=== PATIENT | female | born 1940 ===

== ENCOUNTER 2020-07-16 22:28 | Inpatient (IN) | payer MEDICARE, MEDICAID ==
[2020-07-17 00:30] VITALS: BMI 15.7
[2020-07-17] MEDS ORDERED: Acetaminophen 325 MG TAB PO PRN (01:30)
[2020-07-17] MEDS ORDERED: hydrALAZINE 20 MG/ML VIAL SLOW IVP PRN (01:46)
--- NOTE | 2020-07-17 02:29 | HP ---
REASON FOR ADMISSION: Change in mental status. HISTORY OF PRESENT ILLNESS: This is an 80-year-old female patient, who resides in a group home and has dementia. Recently, her primary care physician has been increasing her amantadine and it was increased from twice a day to three times a day. At the group home around 2:00 p.m., she was noted to be lethargic and confused, which is a change from her usual mental state. She took a nap and then woke up more confused and at some point, she was shaking and having jerking-like movements. She was transferred to an outside emergency room and I did speak with the ER physician, who told me that patient was somnolent as if she was postictal for some period of time, then she became more awake. Her blood work did reveal an increased lactate. She did receive IV fluids. A repeat lactate level showed normalization. A CT of the chest did show questionable pneumonia. Of note, patient had tested positive for COVID-19 on two occasions. The last test was done in May. Patient at that time was febrile and symptomatic and she was isolated whereas the first time, although she tested positive, she was asymptomatic. I did speak with her daughter and she told me that most likely her first test was thought to be a false positive. There was no report of recent shortness of breath, cough, fevers, or chills. Patient is currently on the stroke unit. She appears to be very comfortable, in no acute distress. She follows command and denies shortness of breath. Denies cough. PAST MEDICAL HISTORY: 1. Dementia. 2. Depression. 3. Neuroleptic-induced parkinsonism. 4. Cataract extraction from her right eye. 5. History of falls. 6. Constipation. 7. Anxiety. 8. COVID-19. 9. High blood pressure. SOCIAL HISTORY: She does not smoke. Does not drink alcohol. FAMILY HISTORY: Negative for premature coronary artery disease. REVIEW OF SYSTEMS: Unable to obtain as she is confused. PHYSICAL EXAMINATION: GENERAL: Awake, alert, but confused. VITAL SIGNS: Her blood pressure is 137/80, heart rate of 73, temperature 97.7, and saturating above 95% on room air. HEENT: Head is nontraumatic, normocephalic. Pupils equal and reactive. Extraocular movements are intact. Nonicteric sclerae. Well-injected conjunctivae. Oral mucosa normal. Nasal mucosa normal. NECK: Supple. No adenopathy. No murmur. Thyroid is not palpable. Trachea is midline. No supraclavicular adenopathy. HEART: S1, S2, regular. No murmurs. No gallops. No friction rubs. No displacement of PMI. LUNGS: Clear to auscultation bilaterally. No wheezes, rhonchi, or crackles. Poor inspiratory effort. ABDOMEN: Bowel sounds are positive. Nontender abdomen. No hepatosplenomegaly. EXTREMITIES: No lower extremity edema. No cyanosis. NEUROLOGIC: Cannot perform full neurological examination, but she is moving all four extremities. LABORATORY: Blood work shows lactic acid that initially was 3.6, repeat is 1.5. COVID-19 nondetected. Procalcitonin 0.02. TSH 4.37. INR 1. VBG shows a pH of 7.26, pCO2 of 60, and bicarb 27. Troponin 0.04. Lipase 33. Magnesium 2.1, BUN 16, creatinine 0.76, sodium 140, and potassium 3.6. Urinalysis shows few bacteria, 1 to 2 wbc's, negative leukocyte esterase, negative nitrites. Her CBC shows WBC of 11.9, hemoglobin of 14.2, and platelets of 295. CT of the chest shows lower lung interstitial and ground-glass opacities concerning for infection, including bronchiolitis or inflammatory process. 1.2 cm right upper lobe ground-glass opacity. Recommend followup CT in [address] head shows chronic ischemic changes without evidence of acute intracranial abnormality. ASSESSMENT AND PLAN: This is an 80-year-old female patient presenting with change in mental status, possible seizures in the setting of increasing her amantadine dose from b.i.d. to t.i.d. She had COVID-[address] scan does show possible pneumonia. Neuro. Patient possibly had a seizure. We will have her on seizure precaution. We will do an EEG. We will stop amantadine and other psychiatric medications and we will do frequent neuro checks. Patient will be kept n.p.o. on IV fluids. Cardiac. Patient has high blood pressure. We will have her on IV hydralazine on an as-needed basis. Pulmonary. Patient possibly has a pneumonia. We will cover with IV antibiotics. DVT prophylaxis. She will be on SCDs and Lovenox subcutaneously. I did discuss the code status with her daughter, who is the medical power of energy attorney and she wishes her to be a full code. Job ID: [id number]
[2020-07-17] MEDS: Dextrose 5 %-0.45 % NaCl 1,000 ML IV SCH ×2 (02:52→16:29)
[2020-07-17] MEDS ORDERED: Cefepime 2 GM in Sodium Chloride 0.9% 100 ML IVPB SCH (03:00)
[2020-07-17 06:38] LABS: Anion Gap 12 mmol/L (10-20); BUN (Urea Nitrogen) 10 mg/dL (9.8-20.1); Calc. Creatinine Clearance 43 mL/min (70-130); Calcium 8.3 mg/dL (7.8-10.44); Carbon Dioxide 22 mmol/L (23-31); Chloride 109 mmol/L (98-107); Estimated GFR-MDRD Greater than 90; Glucose 87 mg/dL (83-110); Potassium 4.2 mmol/L (3.5-5.1); Sodium 139 mmol/L (136-145)
[2020-07-17] MEDS: Megestrol Acetate 800 MG/20 ML UDCUP PO SCH (09:28)
[2020-07-17] MEDS: Cefepime 2 GM in Sodium Chloride 0.9% 100 ML IVPB SCH ×2 (09:29→16:29)
[2020-07-17] MEDS: Enoxaparin Sodium 40 MG/0.4 ML SYRINGE SC SCH (09:30)
[2020-07-17] MEDS: Multivitamin W/ Minerals 1 TAB PO SCH (09:30)
[2020-07-17 10:57] LABS: %Monocytes 4.4 % (0.0-10.0); %Neutrophils 81.7 % (42.0-75.0); Hemoglobin 13.5 g/dL (12.0-16.0); Mean Corpuscular HGB CONC 32.3 g/dL (32.0-36.0); Mean Corpuscular Hemoglobin 30.4 pg (27.0-31.0); Platelet Count 204 thou/uL (130-400); RBC Distribution Width 13.9 % (11.5-14.5); Red Blood Cell (RBC) Count 4.46 mill/uL (4.20-5.40); White Blood Cell (WBC) Count 10.1 thou/uL (4.8-10.8)
[2020-07-17 10:58] LABS: #Basophils 0.1 thou/uL (0.0-0.2); #Eosinphils 0.1 thou/uL (0.0-0.7); #Lymphocytes 1.2 thou/uL (1.20-3.40); #Monocytes 0.4 thou/uL (0.11-0.59); #Neutrophils 8.3 thou/uL (1.40-6.50); %Basophils 0.5 % (0.0-1.0); %Eosinophils 1.4 % (0.0-10.0)
[2020-07-17] MEDS ORDERED: levETIRAcetam 500 mg/5 ml Oral Solution PO SCH (12:15)
--- NOTE | 2020-07-17 12:36 | CON ---
DATE OF CONSULTATION: 07/17/2020 REASON FOR CONSULTATION: Altered mental status, rule out seizures. HISTORY OF PRESENT ILLNESS: Ms. Douglas is an 80-year-old female, who is a snf resident and her history is significant for dementia, depression, neuroleptic-induced parkinsonism, presented with altered mental status. Recently, her primary care physician has increased her amantadine from twice a day to three times a day. In the snf around 2 p.m., she was found to be extremely lethargic and confused, which is different from her baseline. She took a nap and then woke up and was more confused, and at some point, she has shaking and jerking movements. When she arrived to the emergency room, she was extremely somnolent. Head CT was done, which was negative for acute intracranial pathology. CT of the chest did show questionable pneumonia. The patient was admitted for further evaluation. REVIEW OF SYSTEMS: Unobtainable due to the patient's mental status. PAST MEDICAL HISTORY: Depression, dementia, neuroleptic-induced parkinsonism, cataract extraction from the right eye, history of multiple falls, anxiety, COVID-19 pneumonia, and hypertension. SOCIAL HISTORY: The patient lives at the snf. No documented history of smoking, alcohol, or illegal drug use. FAMILY HISTORY: Negative for premature coronary artery disease or epilepsy. PAST SURGICAL HISTORY: Not significant. ALLERGIES: NKDA PHYSICAL EXAMINATION: VITAL SIGNS: Blood pressure 130/80, pulse 80, respiratory rate 18. GENERAL: Awake and alert female, in no acute distress. CVS: Regular rate and rhythm. CHEST: Clear. ABDOMEN: Soft. NECK: Supple. NEUROLOGIC: Mental status; the patient is alert and oriented to person only. Speech is clear. Motor; muscle tone and bulk are normal. Moving all 4 extremities equally and symmetrically. Sensory; withdraws to nailbed pressure bilaterally. Cranial nerves; pupils 4 mm, round and reactive to light. Face symmetric. Tongue midline. Moves neck in both directions. Hearing seems to be intact. Cerebellar, did not cooperate with the testing. Gait deferred due to the patient's safety reason. LABORATORY DATA: Data reviewed. I reviewed the head CT, which was negative for acute intracranial pathology. EEG was reviewed and was consistent with epilepsy with spikes seen in both right and left cerebral hemispheres. ASSESSMENT AND PLAN: Ms. Radha Douglas is consulted for an episode of confusion associated with jerking. EEG is consistent with cortical irritability, which increased risk of seizure activity. MRI of the brain without contrast is pending. Observe seizure precaution. Ativan 2 mg IV for seizure greater than 2 minutes. Start Keppra 500 mg twice daily. Neuro checks every 4 hours. Continue home medications. Continue medical management per primary team. Plan discussed with the nursing staff. We will continue to follow. Thank you for the consult. Job ID: [id number] MTDD
--- NOTE | 2020-07-17 12:51 | CON ---
DATE OF CONSULTATION: 07/17/2020 STUDY PERFORMED: EEG. SUMMARY: This EEG was performed using 24-channel [employer] video digital EEG machine with 24-disk electrodes. This was an extended 2 hours 6 minutes of inpatient video EEG recording. Digital analysis of the EEG was done for spike and seizure detection, which revealed abnormalities. BACKGROUND: There is a nonsustained posterior background rhythm of 6 to 7 Hz. Minimal reactivity is seen with eye opening and closure. HYPERVENTILATION: Not performed. PHOTIC STIMULATION: Not performed. SLEEP: Drowsiness and sleep are observed. EEG DIAGNOSES: 1. Rare tjnse-vuw-pzod discharge seen in both right and left cerebral hemispheres. 2. Intermittent irregular theta activity seen during the recording. 3. Nonsustained slow posterior background rhythm. CLINICAL INTERPRETATION: This EEG is consistent with interictal expression of epilepsy in the setting of moderate generalized nonspecific cerebral dysfunction. Job ID: [id number]
--- NOTE | 2020-07-17 14:17 | MRI ---
MRI BRAIN WITHOUT CONTRAST: HISTORY: New-onset seizures FINDINGS: No restricted diffusion is seen. There are changes of cortical atrophy. There are multiple foci of T2 prolongation in the periventricular white matter, consistent with chronic small vessel ischemic disease. The ventricular size is appropriate and the basilar cisterns are patent. No evidence of acute infarct, hemorrhage, midline shift or abnormal extra-axial fluid collections is seen. There is mucosal disease in the paranasal sinuses. IMPRESSION: No evidence of acute intracranial process.
--- NOTE | 2020-07-17 14:23 | EEG ---
DATE OF SERVICE: 07/17/2020 ATTENDING PHYSICIAN: Mariana Srinivasan MD This EEG was performed using 24-channel [place] video digital EEG machine with 24- disk electrodes. This was an extended 2 hours 6 minutes of inpatient video EEG recording. Digital analysis of the EEG was done for spike and seizure detection which revealed abnormalities. BACKGROUND: There is a nonsustained posterior background rhythm of 6 to 7 hertz. Minimal reactivity is seen with eye opening and closure. HYPERVENTILATION: Not performed. PHOTIC STIMULATION: Not performed. SLEEP: Drowsiness and sleep are observed. EEG DIAGNOSES: 1. Rare spike and wave discharge is seen in both right and left cerebral hemispheres. 2. Intermittent irregular theta activity is seen during the recording. 3. Nonsustained slow posterior background rhythm. CLINICAL INTERPRETATION: This EEG is consistent with interictal expression of epilepsy in the setting of moderate generalized nonspecific cerebral dysfunction. Job ID: [id number] MTDD
[2020-07-17] MEDS: levETIRAcetam 500 mg/5 ml Oral Solution PO SCH (22:25)
[2020-07-18] MEDS: Cefepime 2 GM in Sodium Chloride 0.9% 100 ML IVPB SCH ×2 (02:57→08:48)
[2020-07-18] MEDS: Dextrose 5 %-0.45 % NaCl 1,000 ML IV SCH (08:13)
--- NOTE | 2020-07-18 08:33 | PDOC.HOSPP ---
- Subjective Encounter Date: 07/18/20 Subjective: Patient is awake, alert, oriented to self. She reports feeling well, no concerns. Denies chest pain, difficulty breathing, abdominal pain. States she is hungry and usually has a good appetite. currently NPO until can be reassessed with speech therapy - Objective Vital Signs & Weight: Vital Signs (12 hours) Temp Pulse Resp BP Pulse Ox 07/18/20 07:57 97.3 F L 73 14 120/73 96 07/18/20 04:00 98.9 F 74 14 130/77 93 L 07/18/20 00:00 98.4 F 71 22 H 139/79 90 L Weight Admit Weight 86 lb 3.2 oz Weight 86 lb 3.2 oz I&O: 07/17/20 07/18/20 07/19/20 06:59 06:59 06:59 Intake Total 900 Balance 900 Result Diagrams: 07/17/20 03:57 07/17/20 03:30 Hospitalist ROS - Review of Systems Constitutional: denies: fever, chills Respiratory: denies: cough, shortness of breath Cardiovascular: denies: chest pain, palpitations Gastrointestinal: denies: nausea, vomiting, abdominal pain - Medication Medications: Active Medications Generic Name Dose Route Start Last Admin Trade Name Freq PRN Reason Stop Dose Admin Acetaminophen 650 mg 07/17/20 01:30 07/17/20 13:31 Tylenol PO 650 mg Q4H PRN Administration Headache/Fever/Mild Pain (1-3) Enoxaparin Sodium 40 mg 07/17/20 09:00 07/17/20 09:30 Enoxaparin Sodium 40 Mg/0.4 Ml Syringe SC 40 mg 0900 EDA Administration Dextrose/Sodium Chloride 1,000 mls @ 75 mls/hr 07/17/20 01:45 07/18/20 08:13 D5 1/2 Ns IV Not Given .[id number] EDA Cefepime HCl 2 gm/ Sodium 100 mls @ 200 mls/hr 07/17/20 09:00 07/18/20 02:57 Chloride IVPB 100 mls 0100,0900,1700 EDA Administration Iron/Minerals/Multivitamins 1 tab 07/17/20 09:00 07/17/20 09:30 Theragran M PO 1 tab DAILY DEA Administration Levetiracetam 500 mg 07/17/20 21:00 07/17/20 22:25 Levetiracetam 500 Mg/5 Ml Oral Solution PO 500 mg BID EDA Administration Megestrol Acetate 400 mg 07/17/20 09:00 07/17/20 09:28 Megace PO 400 mg DAILY EDA Administration - Exam General Appearance: NAD, awake alert Eye: PERRL ENT: normocephalic atraumatic Heart: RRR, no murmur Respiratory: CTAB, no wheezes Gastrointestinal: soft, non-tender Extremities: no cyanosis, no edema Neurological: cranial nerve grossly intact, no new deficit Psychiatric: normal affect, normal behavior, oriented to person Hosp A/P (1) Dementia Code(s): F03.90 - UNSPECIFIED DEMENTIA WITHOUT BEHAVIORAL DISTURBANCE (2) Seizure disorder Code(s): G40.909 - EPILEPSY, UNSP, NOT INTRACTABLE, WITHOUT STATUS EPILEPTICUS Status: Acute (3) HTN (hypertension) Code(s): I10 - ESSENTIAL (PRIMARY) HYPERTENSION Status: Chronic (4) Pneumonia Code(s): J18.9 - PNEUMONIA, UNSPECIFIED ORGANISM Status: Acute - Plan Dementia - known history of dementia - recently increased amantidine to TID - holding at this time due to NPO status Pneumonia - continue cefepime - currently NPO due to concerns of aspiration - Speech on board to evaluate patient Seizure - seizure like activity noted at correction - neurology consulted -EEG from yesterday showed spike and wave discharge in both right and left cerebral hemispheres consistent with epilepsy in the setting of moderate generalized nonspecific cerebral dysfunction. - started on keppra 500mg BID - no further signs of seizure like activity HTN - BP at goal - will hold antihypertensives at this time
[2020-07-18] MEDS: levETIRAcetam 500 mg/5 ml Oral Solution PO SCH ×2 (08:48→21:41)
[2020-07-18] MEDS: Enoxaparin Sodium 40 MG/0.4 ML SYRINGE SC SCH (08:50)
[2020-07-18] MEDS: Multivitamin W/ Minerals 1 TAB PO SCH (08:50)
[2020-07-18] MEDS: Megestrol Acetate 800 MG/20 ML UDCUP PO SCH (08:51)
--- NOTE | 2020-07-18 12:12 | PDOC.NEUPN ---
- Subjective Encounter Date: 07/18/20 Subjective: Patient is awake and oriented to person . - Objective Vital Signs & Weight: Vital Signs (12 hours) Temp Pulse Resp BP Pulse Ox 07/18/20 11:30 96.9 F L 87 14 130/79 95 07/18/20 08:48 96 07/18/20 07:57 97.3 F L 73 14 120/73 96 07/18/20 04:00 98.9 F 74 14 130/77 93 L Weight Admit Weight 86 lb 3.2 oz Weight 86 lb 3.2 oz I&O: 07/17/20 07/18/20 07/19/20 06:59 06:59 06:59 Intake Total 900 Balance 900 Result Diagrams: 07/17/20 03:57 07/17/20 03:30 Radiology Reviewed by me: Yes EKG Reviewed by me: Yes ROS - Review of Systems ROS unobtainable: due to mental status - Medication Medications: Active Medications Generic Name Dose Route Start Last Admin Trade Name Freq PRN Reason Stop Dose Admin Acetaminophen 650 mg 07/17/20 01:30 07/17/20 13:31 Tylenol PO 650 mg Q4H PRN Administration Headache/Fever/Mild Pain (1-3) Enoxaparin Sodium 40 mg 07/17/20 09:00 07/18/20 08:50 Enoxaparin Sodium 40 Mg/0.4 Ml Syringe SC 40 mg 0900 EDA Administration Iron/Minerals/Multivitamins 1 tab 07/17/20 09:00 07/18/20 08:50 Theragran M PO 1 tab DAILY EDA Administration Levetiracetam 500 mg 07/17/20 21:00 07/18/20 08:48 Levetiracetam 500 Mg/5 Ml Oral Solution PO 500 mg BID EDA Administration Megestrol Acetate 400 mg 07/17/20 09:00 07/18/20 08:51 Megestrol Acetate 800 Mg/20 Ml Udcup PO 400 mg DAILY EDA Administration - Exam General Appearance: awake alert Eye: PERRL ENT: normocephalic atraumatic Neck: supple Respiratory: CTAB Cardiovascular: RRR Gastrointestinal: soft Extremities: no cyanosis Skin: normal turgor Neurological: no focal deficits, no new deficit PSYCH: normal affect, oriented to person Results - Labs Result Diagrams: 07/17/20 03:57 07/17/20 03:30 Lab results: WBC 10.1 thou/uL (4.8-10.8) 07/17/20 03:57 Hgb 13.5 g/dL (12.0-16.0) 07/17/20 03:57 Hct 41.9 % (36.0-47.0) 07/17/20 03:57 MCV 94.0 fL (78.0-98.0) 07/17/20 03:57 Plt Count 204 thou/uL (130-400) 07/17/20 03:57 Neutrophils % 81.7 % (42.0-75.0) H 07/17/20 03:57 Sodium 139 mmol/L (136-145) 07/17/20 03:30 Potassium 4.2 mmol/L (3.5-5.1) 07/17/20 03:30 Chloride 109 mmol/L (98-107) H 07/17/20 03:30 Carbon Dioxide 22 mmol/L (23-31) L 07/17/20 03:30 BUN 10 mg/dL (9.8-20.1) 07/17/20 03:30 Creatinine 0.62 mg/dL (0.6-1.1) 07/17/20 03:30 Glucose 87 mg/dL (83-110) 07/17/20 03:30 Calcium 8.3 mg/dL (7.8-10.44) 07/17/20 03:30 - EKG Interpretation EKG: NSR - Radiology Interpretation MRI - head Additional Comment: No acute intracranial pathology. PN A/P (1) Seizure disorder Code(s): G40.909 - EPILEPSY, UNSP, NOT INTRACTABLE, WITHOUT STATUS EPILEPTICUS Status: Acute (2) Pneumonia Code(s): J18.9 - PNEUMONIA, UNSPECIFIED ORGANISM Status: Acute (3) Dementia Code(s): F03.90 - UNSPECIFIED DEMENTIA WITHOUT BEHAVIORAL DISTURBANCE Status: Chronic (4) HTN (hypertension) Code(s): I10 - ESSENTIAL (PRIMARY) HYPERTENSION Status: Chronic - Plan Daily Plan: PT/OT, speech therapy, DVT proph w/SCDs 80 year old consulted for seizure like activity. She does have dementia as baseline. EEG reviewed and was abnormal consistent with epilepsy. MRI brain reviewed and was negative for acute intracranial process. Keppra 500 mg bid started which she tolerated well. Observe seizure precautions. Ativan 2 mg IV for seizure greater than 2 minutes Continue home medications. PT/OT/Speech. Continue medical management per primary team. CM on board regarding discharge planning. Case discussed during MDR rounds.
[2020-07-18] MEDS: Cefdinir 300 MG CAP PO SCH (21:41)
[2020-07-19 08:07] LABS: #Eosinphils 0.2 thou/uL (0.0-0.7); #Lymphocytes 1.2 thou/uL (1.20-3.40); #Monocytes 0.4 thou/uL (0.11-0.59); #Neutrophils 5.2 thou/uL (1.40-6.50); %Basophils 0.5 % (0.0-1.0); %Eosinophils 2.8 % (0.0-10.0); %Lymphocytes 17.1 % (21.0-51.0); %Monocytes 6.2 % (0.0-10.0); %Neutrophils 73.4 % (42.0-75.0); Hemoglobin 13.8 g/dL (12.0-16.0); Mean Corpuscular HGB CONC 32.8 g/dL (32.0-36.0); Mean Corpuscular Hemoglobin 30.4 pg (27.0-31.0); Mean Corpuscular Volume 92.8 fL (78.0-98.0); Mean Platelet Volume 8.4 fL (7.4-10.4); Platelet Count 222 thou/uL (130-400); RBC Distribution Width 13.8 % (11.5-14.5); Red Blood Cell (RBC) Count 4.52 mill/uL (4.20-5.40); White Blood Cell (WBC) Count 7.1 thou/uL (4.8-10.8)
[2020-07-19 08:34] LABS: Anion Gap 13 mmol/L (10-20); BUN (Urea Nitrogen) 12 mg/dL (9.8-20.1); Calc. Creatinine Clearance 49 mL/min (70-130); Calcium 8.6 mg/dL (7.8-10.44); Carbon Dioxide 23 mmol/L (23-31); Chloride 107 mmol/L (98-107); Estimated GFR-MDRD Greater than 90; Glucose 94 mg/dL (83-110); Potassium 3.6 mmol/L (3.5-5.1); Sodium 139 mmol/L (136-145)
[2020-07-19] MEDS: Megestrol Acetate 800 MG/20 ML UDCUP PO SCH (08:39)
[2020-07-19] MEDS: Cefdinir 300 MG CAP PO SCH (08:39)
[2020-07-19] MEDS: levETIRAcetam 500 mg/5 ml Oral Solution PO SCH (08:39)
[2020-07-19] MEDS: Multivitamin W/ Minerals 1 TAB PO SCH (08:39)
[2020-07-19] MEDS: Enoxaparin Sodium 40 MG/0.4 ML SYRINGE SC SCH (08:40)
--- NOTE | 2020-07-19 11:16 | PDOC.NEUPN ---
- Subjective Encounter Date: 07/19/20 Subjective: Patient is awake and oriented to person . Nio reported complaints overnight. - Objective Vital Signs & Weight: Vital Signs (12 hours) Temp Pulse Resp BP Pulse Ox 07/19/20 08:32 94 L 07/19/20 07:29 98.7 F 81 18 142/82 H 94 L 07/19/20 05:38 98.4 F 79 18 143/86 H 96 07/19/20 00:00 97.7 F 78 13 127/83 95 Weight Admit Weight 86 lb 3.2 oz Weight 86 lb 3.2 oz I&O: 07/18/20 07/19/20 07/20/20 06:59 06:59 06:59 Intake Total 900 645 Balance 900 645 Result Diagrams: 07/19/20 07:53 07/19/20 07:53 Radiology Reviewed by me: Yes EKG Reviewed by me: Yes ROS - Review of Systems ROS unobtainable: due to mental status - Medication Medications: Active Medications Generic Name Dose Route Start Last Admin Trade Name Freq PRN Reason Stop Dose Admin Acetaminophen 650 mg 07/17/20 01:30 07/17/20 13:31 Tylenol PO 650 mg Q4H PRN Administration Headache/Fever/Mild Pain (1-3) Cefdinir 300 mg 07/18/20 21:00 07/19/20 08:39 Cefdinir 300 Mg Cap PO 07/28/20 23:59 300 mg BID EDA Administration Enoxaparin Sodium 40 mg 07/17/20 09:00 07/19/20 08:40 Enoxaparin Sodium 40 Mg/0.4 Ml Syringe SC 40 mg 09 EDA Administration Iron/Minerals/Multivitamins 1 tab 07/17/20 09:00 07/19/20 08:39 Theragran M PO 1 tab DAILY EDA Administration Levetiracetam 500 mg 07/17/20 21:00 07/19/20 08:39 Levetiracetam 500 Mg/5 Ml Oral Solution PO 500 mg BID EDA Administration Megestrol Acetate 400 mg 07/17/20 09:00 07/19/20 08:39 Megestrol Acetate 800 Mg/20 Ml Udcup PO 400 mg DAILY EDA Administration - Exam General Appearance: awake alert Eye: PERRL ENT: normocephalic atraumatic Neck: supple Respiratory: CTAB Cardiovascular: RRR Gastrointestinal: soft Extremities: no cyanosis Skin: normal turgor Neurological: no new deficit Musculoskeletal: normal tone, normal strength, no muscle wasting PSYCH: normal affect, normal behavior, oriented to person Results - Labs Result Diagrams: 07/19/20 07:53 07/19/20 07:53 Lab results: WBC 7.1 thou/uL (4.8-10.8) 07/19/20 07:53 Hgb 13.8 g/dL (12.0-16.0) 07/19/20 07:53 Hct 42.0 % (36.0-47.0) 07/19/20 07:53 MCV 92.8 fL (78.0-98.0) 07/19/20 07:53 Plt Count 222 thou/uL (130-400) 07/19/20 07:53 Neutrophils % 73.4 % (42.0-75.0) 07/19/20 07:53 Sodium 139 mmol/L (136-145) 07/19/20 07:53 Potassium 3.6 mmol/L (3.5-5.1) 07/19/20 07:53 Chloride 107 mmol/L (98-107) 07/19/20 07:53 Carbon Dioxide 23 mmol/L (23-31) 07/19/20 07:53 BUN 12 mg/dL (9.8-20.1) 07/19/20 07:53 Creatinine 0.55 mg/dL (0.6-1.1) L 07/19/20 07:53 Glucose 94 mg/dL (83-110) 07/19/20 07:53 Calcium 8.6 mg/dL (7.8-10.44) 07/19/20 07:53 PN A/P (1) Seizure disorder Code(s): G40.909 - EPILEPSY, UNSP, NOT INTRACTABLE, WITHOUT STATUS EPILEPTICUS Status: Acute (2) Pneumonia Code(s): J18.9 - PNEUMONIA, UNSPECIFIED ORGANISM Status: Acute (3) Dementia Code(s): F03.90 - UNSPECIFIED DEMENTIA WITHOUT BEHAVIORAL DISTURBANCE Status: Chronic (4) HTN (hypertension) Code(s): I10 - ESSENTIAL (PRIMARY) HYPERTENSION Status: Chronic - Plan Daily Plan: PT/OT, speech therapy, DVT proph w/SCDs 80 year old consulted for new onset seizure like activity. She does have dementia as baseline. Patient stable and no reported complaints. EEG reviewed and was abnormal consistent with epilepsy. MRI brain reviewed and was negative for acute intracranial process. Continue Keppra 500 mg bid Observe seizure precautions. Ativan 2 mg IV for seizure greater than 2 minutes Continue home medications. PT/OT/Speech. Continue medical management per primary team. CM on board regarding discharge planning. Case discussed during MDR rounds. No further recommendations from neurology perspective.
[2020-07-19 16:09] VITALS: BP 124/74; TEMP 99
--- NOTE | 2020-07-19 16:19 | PQF ---
CLINICAL DOCUMENTATION CLARIFICATION FORM: Dear Dr. Tabby Lacey Date: 07-19-20 Please exercise your independent, professional judgment in responding to the clarification form. Clinical indicators are provided on the bottom of this form for your review. Please check appropriate box(es): [ ] Protein Calorie Malnutrition: [ x] Mild [ ] Moderate [ ] Severe [ ] Other Malnutrition (please specify) [ ] Other diagnosis [ ] Unable to determine In addition, please specify: Present on Admission (POA): [ x ] Yes [ ] No [ ] Unable to determine For continuity of documentation, please document condition throughout progress notes and discharge summary. Thank You. To be completed by CDI/Coding staff for physician review: CLINICAL INDICATORS - SIGNS / SYMPTOMS / LABS / RESULTS AND LOCATION IN MR: Building Energy Consultant Consult 07-19-20: noted severe muscle wasting in triceps, mild muscle wasting in temporal ; Skin: stage I pressure ulcer to sacrum , Abd: incontinent- stool, appetite changes, swallowing impaired, abnormal gait, active bowel sounds, Building Energy Consultant Consult 07-19-20: severe muscle wasting in triceps, moderate muscle wasting in clavicle region, mild muscle wasting in temporal region, BMI 15.7, and predicted <50% energy intake prior to admission RISK FACTORS / RESULTS AND LOCATION IN MR: Building Energy Consultant consult 07-19-20: nsg home resident, dementia, depression, neuroleptic-induced parkinsonism, cataract extraction from her right eye, hx of falls, constipation, anxiety, COVID-19, high blood pressure TREATMENT / RESULTS AND LOCATION IN MR: Building Energy Consultant consult 07-19-20: 1) Recommend Regular diet with textures per ROUTING MACHINE OPERATOR recommendations. Recommend leaving off Heart Healthy to promote PO intake. 2) Recommend Ensure Enlive TID to assist with meeting needs and promote weight gain. 3) Continue appetite stimulant to promote PO intake. 4) Monitor weight, and obtain weight at least bi-weekly. Moderate Malnutrition (in acute illness) Energy Intake: <75% of estimated energy requirement for > 7 days Weight Loss: 1-2%/1 week; 5%/ 1 month; 7.5%/3 months Other: mild body fat loss; mild muscle mass loss; mild fluid accumulation; Severe Malnutrition (in acute illness) Energy Intake: = 50% of estimated energy requirement for = 5 days Weight Loss: >2%/1 week; >5%/1 month; >7.5%/3 months Other: moderate body fat loss; moderate muscle mass loss; moderate- severe fluid accumulation; measurably reduced supervisor files strength Moderate Malnutrition (in chronic illness) Energy Intake: <75% of estimated energy requirement for =1 month Weight Loss: 5%/1 month; 7.5%/3 months; 10%/6 months; 20%/1 year Other: mild body fat loss; mild muscle mass loss; mild fluid accumulation Severe Malnutrition (in chronic illness) Energy Intake: =75% of estimated energy requirement for =1 month Weight Loss: >5%/1 month; >7.5%/3 months; >10%/6 months; >20%/1 year Other: severe body fat loss; severe muscle mass loss; severe fluid accumulation; measurably reduced supervisor files strength CDS Signature: Tessa Rodríguez Phone #: [phone] Date: 07-19-20 This is a permanent part of the Medical Record [facility]
--- NOTE | 2020-07-19 16:34 | PQF ---
CLINICAL DOCUMENTATION CLARIFICATION FORM: Dear Dr. KHRIS HORTON Date: 07-19-20 Please exercise your independent, professional judgment in responding to the clarification form. Clinical indicators are provided on the bottom of this form for your review. Please check appropriate box(es): [ ] Encephalopathy: Type: [ ] Acute [ ] Subacute [ ] Chronic Etiology [ ] Metabolic [ ] Toxic [ ] In the setting of underlying dementia [ ] Other (please specify) [ x ] Transient Alteration of Awareness [ ] Other diagnosis [ ] Unable to determine In addition, please specify: Present on Admission (POA): [ x ] Yes [ ] No [ ] Unable to determine For continuity of documentation, please document condition throughout progress notes and discharge summary. Thank You. To be completed by CDI/Coding staff for physician review: CLINICAL INDICATORS - SIGNS / SYMPTOMS / LABS / RESULTS AND LOCATION IN EMR: H&P 07-16-20: FROM [place] AND HAS DEMENTIA, RECENTLY, HER PCP HAS BEEN INCREASING HER AMANTADINE AND IT WAS INCREASED FROM TWICE A DAY TO 3 TIMES A DAY. SHE WAS NOTED TO BE LETHARGIC AND CONFUSED, WHICH IS A CHANGE FROM HER USUAL MENTAL STATE. SHE TOOK A NAP AND THEN WOKE UP MORE CONFUSED AND AT SOME POINT, SHE WAS SHAKING AND HAVING JERKING-LIKE MOVEMENTS. RISK FACTORS / RESULTS AND LOCATION IN EMR: H&P : CHANGE IN MENTAL STATUS, POSSIBLE SEIZURES IN THE SETTING OF INCREASING HER AMANTADINE DOSE FROM BID TO TID, SHE HAD COVID [address] SCAN DOES SHOW POSSIBLE PNEUMONIA. TREATMENTS / RESULTS AND LOCATION IN EMR: H&P 07-16-20: WE WILL COVER WITH IV ANTIBIOTICS MAR: 07-17-20: MAXIPIME IV, NS IVF CDS Signature: Tessa Rodríguez Phone #: [phone] Date/Time: 07-19-20 This is a permanent part of the Medical Record [facility]
--- NOTE | 2020-07-20 05:06 | DIS ---
DATE OF ADMISSION: 07/16/2020 DATE OF DISCHARGE: 07/19/2020 DISCHARGE DIAGNOSES: 1. Pneumonia. 2. Seizure. HOSPITAL COURSE: Ms. Douglas is an 80-year-old female with past medical history of dementia and hypertension, who resides in a intermediate. Her primary care physician had recently been increasing amantadine to t.i.d. On the day of presentation to the emergency department, the patient was noted at 2 o'clock to be lethargic and confused, which is a change from her usual mental status. She took a nap and woke up more confused and at some point, she was shaking, having seizure like movements. In evaluation in the emergency department, the patient was found to be somnolent and appeared as if she is postictal for some time. She did have an elevated lactate. She was started on IV fluids with improvement in the lactate level. CT chest did show some concerns of pneumonia. Neurology was consulted and an EEG was obtained. EEG was consistent with cortical irritability, which increased risk of seizure activity. The patient was started on Keppra 500 mg b.i.d. MRI was obtained of the brain, which showed no acute infarcts. The patient was evaluated by Speech and cleared for diet. She was started on Omnicef for concerns of pneumonia. Exam: the patient was resting comfortably in bed, awake, alert, and oriented to herself. Cardio: regular rate and rhythm. Chest: clear to auscultation bilaterally. Abdo: Abdomen was soft, nontender, and nondistended. extremities: no edema of her bilateral lower extremities. Neuro: No focal neuro deficits Activity as tolerated. Diet, heart healthy, low sodium, nectar thick liquids. Medications: Omnicef 300 mg b.i.d. for 7 days Keppra 500 mg b.i.d. Remeron 15 mg daily Lexapro 5 mg daily, amantadine 100 mg p.o. b.i.d. The patient's daughter was instructed to have patient follow up with her PCP within the week. The patient was deemed stable for discharge and was discharged to [facility]. Written precautions were given. Time spent on this discharge was greater than 30 minutes. Job ID: [id number] [facility]
== END 2020-07-19 17:54 | DRG 100 ==
LOC: 2SE 22:28
PROVIDERS: ADMIT Internal Medicine; ATTEND Internal Medicine
DX: G40.909 Epilepsy, unspecified, not intractable, without status epilepticus (principal); J18.9 Pneumonia, unspecified organism; G21.11 Neuroleptic induced parkinsonism; Z68.1 Body mass index [BMI] 19.9 or less, adult; E44.1 Mild protein-calorie malnutrition; F03.90 Unspecified dementia, unspecified severity, without behavioral disturbance, psychotic disturbance, mood disturbance, and anxiety; F32.9 Major depressive disorder, single episode, unspecified; K59.00 Constipation, unspecified; F41.9 Anxiety disorder, unspecified; I10 Essential (primary) hypertension; R40.4 Transient alteration of awareness; Z98.41 Cataract extraction status, right eye
CPT/HCPCS: 36415; 70551; 80048; 85025; 95712; 95816; 95819; 95957; J0692; J1650; J3490; J7042